=== PATIENT | male | born 1950 | race Two or more races ===

== ENCOUNTER 2017-05-10 08:15 | Emergency (ER) | payer MEDICARE, OTHER ==
[~2017-05-10] VITALS: Ht 152.4 cm; Wt 72.0 kg
[~2017-05-10 08:15] MED LIST: CEPH-442 PO; IBUP-1542 PO; LEVO500T10 PO; RANI150T9 PO; SIME180C4 PO
[2017-05-10 08:19] VITALS: Ht 152.4 cm; Wt 72.0 kg
[2017-05-10] MEDS ORDERED: morphine 4 MG/ML VIAL IV STA (08:45)
[2017-05-10] MEDS ORDERED: ONDANSETRON 4 MG INJ IV STA (08:45)
[2017-05-10 08:57] VITALS: BP 146/84; PULSE 92; RESP 18
[2017-05-10] MEDS ORDERED: PANT40TA3 PO (09:00)
[2017-05-10] MEDS ORDERED: PANTOPRAZOLE (EC) 40 MG TAB PO ONE (09:00)
--- NOTE | 2017-05-10 09:02 | ERD ---
ER Documentation Chief Complaint Date/Time DATE: 05/10/17 TIME: 09:02 Chief Complaint Complains of abdominal pain x 2 months HPI Patient is a 66-year-old male with diabetes who presents with "acid in throat". He has abdominal pain as well. He says that all of the symptoms are from acid. He has had these symptoms for 2 months. He said that he has had multiple tests to work this up and that it is "not my heart". The patient does have a primary doctor. He is not taking antacid medicines at this time. ROS All systems reviewed and are negative except as per history of present illness. Medications Home Meds Active Scripts Pantoprazole* (Protonix*) 40 Mg Tablet.dr, 40 MG PO DAILY, #20 TAB Prov:VERONICA GREGORIO MD 05/10/17 Ibuprofen* (Motrin*) 600 Mg Tab, 600 MG PO Q6, #20 TAB Prov:BRETT MUNOZ I. [employer] 11/28/15 Levofloxacin* (Levofloxacin*) 500 Mg Tablet, 500 MG PO DAILY for 10 Days, TAB Prov:BRETT MUNOZ I. [employer] 11/28/15 Reported Medications Simethicone (GAS-X ULTRA STRENGTH) 180 Mg Capsule, 180 MG PO QID 05/02/15 Cephalexin* (Keflex*) 250 Mg Capsule, 250 MG PO Q6, CAP 05/02/15 Ranitidine Hcl* (Zantac*) 150 Mg Tablet, 150 MG PO BID, TAB 05/02/15 Allergies Allergies: Coded Allergies: No Known Allergy (Unverified , 05/02/15) PMhx/Soc History of Surgery: No Anesthesia Reaction: No Hx Neurological Disorder: No Hx Respiratory Disorders: No Hx Cardiac Disorders: No Hx Psychiatric Problems: No Hx Miscellaneous Medical Probl: Yes (DM) Hx Alcohol Use: No Hx Substance Use: No Hx Tobacco Use: No Smoking Status: Never smoker FmHx Family History: No diabetes Physical Exam Vitals Vital Signs Date Time Temp Pulse Resp B/P Pulse Ox O2 Delivery O2 Flow Rate FiO2 05/10/17 08:57 92 18 146/84 92 Room Air 05/10/17 08:19 97.3 96 20 144/68 99 Physical Exam Const: No acute distress Head: Atraumatic Eyes: Normal Conjunctiva ENT: Normal External Ears, Nose and Mouth. Neck: Full range of motion..~ No meningismus. Resp: Clear to auscultation bilaterally Cardio: Regular rate and rhythm, no murmurs Abd: Soft, non tender, non distended. Normal bowel sounds Skin: No petechiae or rashes Back: No midline or flank tenderness Ext: No cyanosis, or edema Neur: Awake and alert Psych: Normal Mood and Affect Results 24 hrs Current Medications Medications (Trade) Dose Ordered Sig/Toni Route PRN Reason Start Time Stop Time Status Last Admin Dose Admin Morphine Sulfate (morphine) 4 mg ONCE STAT IV 05/10/17 08:45 05/10/17 08:59 DC Ondansetron HCl (Zofran Inj) 4 mg ONCE STAT IV 05/10/17 08:45 05/10/17 08:59 DC Miscellaneous Medication (Gi Cocktail (2)) 40 ml ONCE ONCE PO 05/10/17 09:00 05/10/17 09:01 DC Pantoprazole (Protonix Tab) 40 mg ONCE ONCE PO 05/10/17 09:00 05/10/17 09:01 DC 05/10/17 09:05 Procedures/MDM EKG read by me: Rate/Rhythm: Left bundle branch block a rate of 91 Intervals: Normal Impression: Left bundle branch block with negative Sgarbossa criteria Patient is a 66-year-old male presents with abdominal pain and the feeling of acid in his throat. I want to do a full workup including laboratory studies and CT scan of the abdomen and pelvis but the patient is adamantly refusing. He also refused GI cocktail. The patient will be given a prescription for Protonix to reduce acid in the stomach. However please note that the workup was incomplete as the patient was refusing everything. He will need to follow- up closely with his primary doctor within 24 hours. He can return sooner for any worsening symptoms. Departure Diagnosis: Primary Impression: Reflux esophagitis Additional Impression: Abdominal pain Abdominal location: epigastric Qualified Code: R10.13 - Epigastric pain Condition: Fair Patient Instructions: Abdominal Pain, What Is Acid Reflux? Referrals: Your doctor Additional Instructions: FOLLOW UP WITH YOUR PRIMARY CARE PHYSICIAN TOMORROW.Return to this facility if you are not improving as expected. VERONICA GREGORIO MD May 10, 2017 09:02
[2017-05-10] MEDS: LIDOCAINE/MYLANTA 40 ML BTL PO ONE ×2 (09:05→09:07)
== END 2017-05-10 09:33 | disposition home or self-care (01) ==
LOC: E/R 08:15
DX: K21.0 Gastro-esophageal reflux disease with esophagitis (principal); R10.13 Epigastric pain; E11.9 Type 2 diabetes mellitus without complications
CPT/HCPCS: 93005